=== PATIENT | female | born 1995 | race Caucasian/White ===

== ENCOUNTER 2024-01-02 13:05 | Emergency (ER) | payer OTHER ==
[~2024-01-02] VITALS: Ht 185.4 cm; Wt 137.0 kg
[2024-01-02] MEDS: IV NS 0.9% 1,000 ML BAG IV ONE (13:27)
[2024-01-02 13:54] LABS: BASOPHILS % (AUTO) 0.6 % (0.0-2.0); EOSINOPHILS # (AUTO) 0.1 K/uL (0.0-0.7); EOSINOPHILS % (AUTO) 0.9 % (0.0-6.0); HEMATOCRIT 23 % (33-45); HEMOGLOBIN 8.2 g/dL (11.5-14.8); LYMPHOCYTES # (AUTO) 1.3 K/uL (0.8-4.8); LYMPHOCYTES % (AUTO) 20.2 % (20.0-44.0); MEAN CORPUSCULAR HEMOGLOBIN 31 PG (26.0-33.0); MEAN CORPUSCULAR HGB CONC 35 g/dl (31.0-36.0); MEAN CORPUSCULAR VOLUME 87 fL (82-100); MONOCYTES # (AUTO) 0.4 K/uL (0.1-1.30); MONOCYTES % (AUTO) 6.3 % (2.0-12.0); NEUTROPHILS # (AUTO) 4.6 K/uL (1.8-8.9); PLATELET COUNT (AUTO) 236 K/uL (150-450); RED BLOOD CELL COUNT(AUTO) 2.67 MIL/uL (4.0-5.2); RED CELL DISTRIBUTION WIDTH 12.9 % (11.5-15.0); WHITE BLOOD COUNT (AUTO) 6.4 K/uL (4.3-11.0)
[2024-01-02 14:15] LABS: ALANINE AMINOTRANSFERASE 20 U/L (12-78); ALBUMIN 3.6 g/dL (3.4-5.0); ALKALINE PHOSPHATASE 30 U/L (46-116); ASPARTATE AMINOTRANSFERASE 12 U/L (15-37); BILIRUBIN,DIRECT 0.2 mg/dL (0.0-0.2); BILIRUBIN,TOTAL 0.7 mg/dL (0.2-1.0); CALCIUM, SERUM 8.6 mg/dL (8.5-10.1); CARBON DIOXIDE 27 mmol/L (21-32); CHLORIDE 110 mmol/L (98-107); CREATININE 0.7 mg/dL (0.6-1.3); GLUCOSE 102 mg/dL (74-106); NT-PRO BNP 15 pg/mL (0-125); POTASSIUM 3.8 mmol/L (3.5-5.1); SODIUM SERUM 144 mmol/L (136-145); TOTAL PROTEIN, SERUM 6.2 g/dL (6.4-8.2); UREA NITROGEN, BLOOD 9 mg/dL (7-18)
[2024-01-02] MEDS ORDERED: FERR-56 PO (16:46)
[2024-01-02] MEDS ORDERED: PROG200C15 PO (16:46)
[2024-01-02 16:59] VITALS: BP 102/69; TEMP 98; O2SAT 96
== END 2024-01-02 17:01 | disposition home or self-care (01) ==
LOC: ER 13:07
DX: R55 Syncope and collapse (principal); N92.0 Excessive and frequent menstruation with regular cycle; R11.10 Vomiting, unspecified; D64.9 Anemia, unspecified; R10.2 Pelvic and perineal pain
CPT/HCPCS: 99285; 96360; 71045; 93005; 85025; 80048; 80076; 36415; 84484; 83880; 82962; 84702; J7030

== ENCOUNTER 2024-01-05 13:58 | Inpatient (IN) | payer OTHER ==
[~2024-01-05] VITALS: Ht 185.4 cm; Wt 137.9 kg
[~2024-01-05 13:58] MED LIST: FERR-56 PO; PROG200C15 PO
[2024-01-05 15:17] LABS: BASOPHILS % (AUTO) 0.5 % (0.0-2.0); EOSINOPHILS # (AUTO) 0.1 K/uL (0.0-0.7); EOSINOPHILS % (AUTO) 1.4 % (0.0-6.0); LYMPHOCYTES # (AUTO) 2.3 K/uL (0.8-4.8); LYMPHOCYTES % (AUTO) 30.7 % (20.0-44.0); MEAN CORPUSCULAR HEMOGLOBIN 32 PG (26.0-33.0); MEAN CORPUSCULAR HGB CONC 34 g/dl (31.0-36.0); MEAN CORPUSCULAR VOLUME 92 fL (82-100); MONOCYTES # (AUTO) 0.4 K/uL (0.1-1.30); NEUTROPHILS # (AUTO) 4.7 K/uL (1.8-8.9); NEUTROPHILS % (AUTO) 62.4 % (43.0-81.0); PLATELET COUNT (AUTO) 253 K/uL (150-450); RED BLOOD CELL COUNT(AUTO) 2.07 MIL/uL (4.0-5.2); RED CELL DISTRIBUTION WIDTH 13.4 % (11.5-15.0); WHITE BLOOD COUNT (AUTO) 7.5 K/uL (4.3-11.0)
[2024-01-05 15:25] LABS: CALCIUM, SERUM 8.2 mg/dL (8.5-10.1); CREATININE 0.7 mg/dL (0.6-1.3); POTASSIUM 3.6 mmol/L (3.5-5.1)
[2024-01-05 15:26] LABS: HEMATOCRIT 19 % (33-45); HEMOGLOBIN 6.5 g/dL (11.5-14.8)
[2024-01-05 15:28] LABS: INR 1.02 (0.91-1.10); PARTIAL THROMBOPLASTIN TIME 21.9 SEC (24.3-34.3); PROTHROMBIN TIME 10.8 SECS (9.2-11.1)
[2024-01-05 15:31] LABS: ALBUMIN 3.4 g/dL (3.4-5.0); BILIRUBIN,TOTAL 0.5 mg/dL (0.2-1.0); TOTAL PROTEIN, SERUM 6.2 g/dL (6.4-8.2)
[2024-01-05] MEDS ORDERED: FERR-68 PO (15:36)
[2024-01-05] MEDS ORDERED: PROG200C15 PO (15:36)
[2024-01-05] MEDS ORDERED: SEMA1PEN SQ (15:37)
[2024-01-05 16:07] LABS: LYMPHOCYTES % (MANUAL) 21 % (16-48); MONOCYTES % (MANUAL) 2 % (0-11.0); NEUTROPHILS % (MANUAL) 77 (42-76)
[2024-01-05 16:08] LABS: PLATELET ESTIMATE ADEQUATE
[2024-01-05 16:09] LABS: HYPOCHROMASIA 1+
[2024-01-05] MEDS ORDERED: HYDROCODONE/APAP 5/325MG TABLET PO PRN (18:30)
[2024-01-05] MEDS ORDERED: MAG HYDROX/AL HYDROX/SIMETH 30 ML UDC PO PRN (18:30)
[2024-01-05] MEDS ORDERED: HYDROCODONE/APAP 10/325MG TABLET PO PRN (18:30)
[2024-01-05] MEDS ORDERED: MAGNESIUM HYDROXIDE 30 ML UDC PO PRN (18:30)
[2024-01-05] MEDS ORDERED: Z GUARD REMEDY 4 OZ OINT TP PRN (18:30)
[2024-01-05] MEDS ORDERED: ONDANSETRON HCL/PF 4 MG/2 ML VIAL IVP PRN (18:30)
[2024-01-05] MEDS ORDERED: TEMAZEPAM 15 MG CAPSULE PO PRN (18:30)
[2024-01-05 20:30] VITALS: BP 127/64; TEMP 97.9
[2024-01-05 21:00] VITALS: BP 124/72; TEMP 97.8
[2024-01-05 21:30] VITALS: BP 112/60; TEMP 98
[2024-01-05] MEDS: ACETAMINOPHEN 325 MG TABLET PO PRN (22:25)
[2024-01-06] VITALS (8 sets, daily range): BP systolic 114–130; BP diastolic 64–87; TEMP 97.2–98.3; O2SAT 96
[2024-01-06 07:08] LABS: BASOPHILS % (AUTO) 0.4 % (0.0-2.0); EOSINOPHILS # (AUTO) 0.1 K/uL (0.0-0.7); LYMPHOCYTES # (AUTO) 2.4 K/uL (0.8-4.8); LYMPHOCYTES % (AUTO) 33.2 % (20.0-44.0); MEAN CORPUSCULAR HEMOGLOBIN 32 PG (26.0-33.0); MEAN CORPUSCULAR HGB CONC 35 g/dl (31.0-36.0); MEAN CORPUSCULAR VOLUME 93 fL (82-100); MONOCYTES # (AUTO) 0.4 K/uL (0.1-1.30); MONOCYTES % (AUTO) 5.7 % (2.0-12.0); NEUTROPHILS # (AUTO) 4.3 K/uL (1.8-8.9); NEUTROPHILS % (AUTO) 58.7 % (43.0-81.0); PLATELET COUNT (AUTO) 244 K/uL (150-450); RED BLOOD CELL COUNT(AUTO) 2.18 MIL/uL (4.0-5.2); RED CELL DISTRIBUTION WIDTH 14.1 % (11.5-15.0); WHITE BLOOD COUNT (AUTO) 7.3 K/uL (4.3-11.0)
[2024-01-06 07:30] LABS: CALCIUM, SERUM 8.6 mg/dL (8.5-10.1); CREATININE 0.7 mg/dL (0.6-1.3); MAGNESIUM 2.3 mg/dL (1.8-2.4); PHOSPHORUS 5.3 mg/dL (2.5-4.9); POTASSIUM 3.6 mmol/L (3.5-5.1)
[2024-01-06 07:35] LABS: THYROID STIMULATING HORMONE 4.53 uIU/mL (0.358-3.74)
[2024-01-06 07:39] LABS: HEMATOCRIT 20 % (33-45)
[2024-01-06] MEDS: PANTOPRAZOLE 40 MG TABLET.DR PO SCH (08:14)
[2024-01-06] MEDS: medroxyPROGESTERone ACET 5 MG TABLET PO SCH (08:14)
[2024-01-06 09:46] LABS: LYMPHOCYTES % (MANUAL) 38 % (16-48); MONOCYTES % (MANUAL) 2 % (0-11.0); NEUTROPHILS % (MANUAL) 60 (42-76); PLATELET ESTIMATE ADEQUATE
[2024-01-06 09:47] LABS: ANISOCYTOSIS 1+
[2024-01-07] VITALS: BP 120/82; TEMP 97.2; O2SAT 96
[2024-01-07 04:00] VITALS: BP 115/64; TEMP 97.9; O2SAT 99
[2024-01-07 06:36] LABS: BASOPHILS % (AUTO) 0.3 % (0.0-2.0); EOSINOPHILS # (AUTO) 0.2 K/uL (0.0-0.7); EOSINOPHILS % (AUTO) 2.3 % (0.0-6.0); HEMATOCRIT 24 % (33-45); HEMOGLOBIN 8.1 g/dL (11.5-14.8); LYMPHOCYTES % (AUTO) 27.9 % (20.0-44.0); MEAN CORPUSCULAR HEMOGLOBIN 32 PG (26.0-33.0); MEAN CORPUSCULAR HGB CONC 34 g/dl (31.0-36.0); MEAN CORPUSCULAR VOLUME 93 fL (82-100); MONOCYTES # (AUTO) 0.3 K/uL (0.1-1.30); MONOCYTES % (AUTO) 4.4 % (2.0-12.0); NEUTROPHILS # (AUTO) 4.6 K/uL (1.8-8.9); NEUTROPHILS % (AUTO) 65.1 % (43.0-81.0); PLATELET COUNT (AUTO) 259 K/uL (150-450); RED BLOOD CELL COUNT(AUTO) 2.55 MIL/uL (4.0-5.2); RED CELL DISTRIBUTION WIDTH 14.4 % (11.5-15.0); WHITE BLOOD COUNT (AUTO) 7.1 K/uL (4.3-11.0)
[2024-01-07 08:00] VITALS: BP 115/77; TEMP 98.1; O2SAT 96
== END 2024-01-07 14:38 | disposition home or self-care (01) | DRG 760 ==
LOC: ER 14:01 → TELE1 18:33 → MEDSG1 01-06 00:40
PROVIDERS: ADMIT Nurse Practitioner Acute Care; ATTEND Nurse Practitioner Acute Care
PROC: 30233N1 Transfusion of Nonautologous Red Blood Cells into Peripheral Vein, Percutaneous Approach (ICD-10-PCS; principal; 2024-01-05)
DX: N92.0 Excessive and frequent menstruation with regular cycle (principal); Z68.41 Body mass index [BMI] 40.0-44.9, adult; E66.9 Obesity, unspecified; D50.0 Iron deficiency anemia secondary to blood loss (chronic); F12.90 Cannabis use, unspecified, uncomplicated
CPT/HCPCS: 36415; 80048-TC; 80053-TC; 83735-TC; 84100-TC; 84439-TC; 84443-TC; 85025-TC; 85730-TC; 86850-TC; G0378; J7040; P9016